=== PATIENT | male | born 1980 | race Hispanic/Latino ===

== ENCOUNTER → 2022-03-10 | Day surgery (SDC) | payer OTHER ==
[2022-03-08 08:18] LABS: BASOPHILS % 0.2 % (0.0-1.0); EOSINOPHILS # (AUTO) 0.2 (0.0-0.4); EOSINOPHILS % 1.4 % (0.0-6.0); HEMATOCRIT 45.4 % (38.2-49.6); HEMOGLOBIN 15.2 g/dL (14.0-18.0); LYMPHOCYTES # (AUTO) 3.8 (1.0-3.2); MEAN CORPUSCULAR HGB CONC 33.5 g/dL (31-35); MEAN CORPUSCULAR VOLUME 92.5 fL (81-99); MONOCYTES # (AUTO) 0.9 (0.2-0.8); MONOCYTES % 8.1 % (4.4-11.3); NEUTROPHILS # (AUTO) 6.3 (2.1-6.9); PLATELET COUNT 199 x10e3/uL (140-360); RED BLOOD COUNT 4.91 x10e6/uL (4.3-5.7); RED CELL DISTRIBUTION WIDTH 11.8 % (11.7-14.4)
[2022-03-08 08:34] LABS: ANION GAP 13.7 mmol/L (8-16); CALCIUM 9.3 mg/dL (8.4-10.2); CREATININE, SERUM 0.85 mg/dL (0.72-1.25); POTASSIUM 3.7 mmol/L (3.5-5.1)
[~2022-03-10] MED LIST: BUPIVACAINE 0.25% 30ML SDV ONE; DEXAMETHASONE SOD PHOS INJ 4 MG/ML SDV ONE; FENTANYL CITRATE/PF 100MCG/2 ML INJ ONE; HYDRALAZINE HCL 20 MG/ML VIAL ONE; HYDROCODONE/APAP 7.5MG-325MG 1 EA TAB ONE; KETOROLAC TROMETHAMINE 30 MG/ML VIAL ONE; LIDOCAINE HCL 2% LOCAL INJ 5 ML SDV VIAL INJ ONE; MIDAZOLAM HCL 2 MG/2 ML VIAL ONE; Morphine 2mg Syringe 2 MG/ML SYR ONE; ONDANSETRON HCL INJ 2MG/ML 2ML 2 MG/ML VIAL ONE; POVIDONE IODINE 0.05% 0.05 % ML PO ONE; PROPOFOL IV EMULSION 10 MG/ML 20 ML VIAL ONE; ROCURONIUM BROMIDE 10 MG/ML 5ML VIAL IV ONE; SEVOFLURANE INHAL SOLN 250 ML PEN BTL ONE
[2022-03-10 11:43] VITALS: BP 135/82
== END | disposition home or self-care (01) ==
LOC: OR 06:19
PROVIDERS: ATTEND Surgery
DX: K43.6 Other and unspecified ventral hernia with obstruction, without gangrene (principal); L98.491 Non-pressure chronic ulcer of skin of other sites limited to breakdown of skin; G47.33 Obstructive sleep apnea (adult) (pediatric); R73.03 Prediabetes; Z01.810 Encounter for preprocedural cardiovascular examination; Z01.812 Encounter for preprocedural laboratory examination; Z20.822 Contact with and (suspected) exposure to COVID-19
CPT/HCPCS: 0223U; 36415; 49561; 49568; 80048; 85025; 88302; 93005; C1781; J0360; J0690; J1100; J1885; J2001; J2270; J2405; J2704; J3010; J2250